=== PATIENT | female | born 2000 | race Two or more races ===

== ENCOUNTER 2020-09-18 13:15 | Observation (INO) | payer SELFPAY ==
[2020-09-18] MEDS ORDERED: IV RINGERS,LACTATED 1000ML 1,000 ML IV PRN (13:45)
[2020-09-18 13:54] LABS: BILIRUBIN,URINE NEGATIVE (NEG); CLARITY,URINE CLEAR; COLOR,URINE YELLOW; NITRITE,URINE NEGATIVE (NEG); PH,URINE 7.5 (<5.0-8.0); PROTEIN,URINE NEGATIVE (NEG-TRACE); UROBILINOGEN,URINE 0.2 mg/dL (0.2 mg/dL)
[2020-09-18 14:09] LABS: BACTERIA,URINE FEW /HPF (0-FEW); RBC,URINE 0 /HPF (0-2)
== END 2020-09-18 14:37 | disposition home or self-care (01) ==
LOC: 3 SO LND 13:15
PROVIDERS: ADMIT Obstetrics & Gynecology; ATTEND Obstetrics & Gynecology
DX: O62.9 Abnormality of forces of labor, unspecified (principal); O26.853 Spotting complicating pregnancy, third trimester; Z3A.38 38 weeks gestation of pregnancy
CPT/HCPCS: 81001; G0378; G0379; 59025

== ENCOUNTER 2020-09-19 10:19 | Observation (INO) | payer BC ==
[2020-09-19] MEDS ORDERED: IV RINGERS,LACTATED 1000ML 1,000 ML IV PRN (10:30)
[2020-09-20] MEDS ORDERED: PNV1TABL25 PO (13:34)
== END 2020-09-19 13:16 | disposition home or self-care (01) ==
LOC: 3 SO LND 10:19
PROVIDERS: ADMIT Obstetrics & Gynecology; ATTEND Obstetrics & Gynecology
DX: O62.9 Abnormality of forces of labor, unspecified (principal); O21.2 Late vomiting of pregnancy; Z3A.38 38 weeks gestation of pregnancy
CPT/HCPCS: G0378; G0379; 59025

== ENCOUNTER 2020-09-20 12:21 | Inpatient (IN) | payer BC ==
[~2020-09-20] VITALS: Ht 152.4 cm; Wt 72.1 kg
[2020-09-20] MEDS ORDERED: 0.9 % SODIUM CHLORIDE 10 ML DISP.SYRIN. IV PRN ×2 (12:45→23:15)
[2020-09-20] MEDS ORDERED: LIDOCAINE 1% PF 30 ML VIAL. INJ PRN (12:45)
[2020-09-20] MEDS ORDERED: ACETAMINOPHEN 325 MG TABLET. PO PRN ×2 (12:45→23:15)
[2020-09-20] MEDS ORDERED: TERBUTALINE 1 MG/ML VIAL. SQ PRN (12:45)
[2020-09-20] MEDS ORDERED: BUTORPHANOL 2 MG/ML VIAL. IVP PRN ×2 (12:45)
[2020-09-20] MEDS ORDERED: OXYTOCIN 30 UNIT/500 ML PREMIX 500 ML IV PRN ×3 (12:45→23:15)
[2020-09-20 13:31] VITALS: BP 147/68
[2020-09-20] MEDS ORDERED: PNV1TABL25 PO (13:34)
[2020-09-20] MEDS: IV RINGERS,LACTATED 1000ML 1,000 ML IV SCH ×3 (13:36→20:40)
[2020-09-20 13:43] LABS: BASO # 0.1 x10^3/uL (0.0-0.2); BASO % 0 % (0-3); EOS % 0 % (0-3); HEMATOCRIT 41.2 % (36.0-47.0); HEMOGLOBIN 13.9 g/dL (12.0-15.5); LYMPH # 1.8 x10^3/uL (1.0-4.8); LYMPH % 13 % (24-48); MEAN CORPUSCULAR HEMOGLOBIN 27 pg (25-35); MEAN CORPUSCULAR HGB CONC 34 g/dL (31-37); MEAN CORPUSCULAR VOLUME 81 fL (79-100); MONO # 0.8 x10^3/uL (0.0-1.1); MONO % 6 % (0-9); NEUT # 11.1 x10^3/uL (1.8-7.7); NEUT % 81 % (31-73); PLATELET COUNT 226 x10^3/uL (140-400); RED BLOOD COUNT 5.09 x10^6/uL (3.50-5.40); WHITE BLOOD COUNT 13.8 x10^3/uL (4.0-11.0)
--- NOTE | 2020-09-20 14:24 | PDOC1 ---
WELLNESS PROGRAM MANAGER H&P Date of Admission: Date of Admission: Sep 20, 2020 at 12:21 History of Present Illness: EDC: 09/27/20 LMP: 12/22/19 20y @ 39.0 by L=21 who presented to clinic with ctxs and was found to be 3 cm. The pt presented to L&D this weekend and was found to be 1 cm. She was sent home at that time b/c it was thought that she was in latent labor. Since the pt is now greater than 3 cm she was subsequently admitted. merry Redd ges in vision, or abd pain. PMH: Denies PSH: Denies Meds: PNV All: NKDA OBHx: G1 SH: no tob, no EtOH FH: noncontributory Medications: Meds: Current Medications Medications (Trade) Dose Ordered Sig/Jolie Route PRN Reason Start Time Stop Time Status Last Admin Dose Admin Ringer's Solution 1,000 ml @ 125 mls/hr Q8H IV 09/20/20 12:45 09/20/20 13:36 Butorphanol Tartrate (Stadol) 1 mg PRN Q1HR PRN IVP mild to moderate labor pain 09/20/20 12:45 09/20/20 13:55 Allergies: Coded Allergies: No Known Drug Allergies (Unverified , 09/18/20) Physical Exam: Vital Signs: Vital Signs Date Time Temp Pulse Resp B/P (MAP) Pulse Ox O2 Delivery O2 Flow Rate FiO2 09/20/20 13:55 20 Room Air 09/20/20 13:31 98.3 66 147/68 (94) 98.3 PE: GENERAL: No apparent distress. Alert and oriented. HEENT: Head normocephalic, atraumatic. NECK: Supple LUNGS: Clear to auscultation. HEART: RRR, S1, S2 present, pulses intact ABDOMEN: Soft, positive bowel sounds. EXTREMITIES: No cyanosis or edema. NEUROLOGIC: Normal speech, normal tone PSYCHIATRIC: Normal affect, normal mood. SKIN: No ulceration. FHT: 140's +acels/no decels/mLTV [place]: 3-4 min SVE: 4/C/-2 Labs: Laboratory Tests Test 09/20/20 13:15 White Blood Count 13.8 x10^3/uL (4.0-11.0) H Red Blood Count 5.09 x10^6/uL (3.50-5.40) Hemoglobin 13.9 g/dL (12.0-15.5) Hematocrit 41.2 % (36.0-47.0) Mean Corpuscular Volume 81 fL (79-100) Mean Corpuscular Hemoglobin 27 pg (25-35) Mean Corpuscular Hemoglobin Concent 34 g/dL (31-37) Red Cell Distribution Width 13.0 % (11.5-14.5) Platelet Count 226 x10^3/uL (140-400) Neutrophils (%) (Auto) 81 % (31-73) H Lymphocytes (%) (Auto) 13 % (24-48) L Monocytes (%) (Auto) 6 % (0-9) Eosinophils (%) (Auto) 0 % (0-3) Basophils (%) (Auto) 0 % (0-3) Neutrophils # (Auto) 11.1 x10^3/uL (1.8-7.7) H Lymphocytes # (Auto) 1.8 x10^3/uL (1.0-4.8) Monocytes # (Auto) 0.8 x10^3/uL (0.0-1.1) Eosinophils # (Auto) 0.0 x10^3/uL (0.0-0.7) Basophils # (Auto) 0.1 x10^3/uL (0.0-0.2) Laboratory Tests 09/20/20 13:15 Laboratory Tests 09/20/20 13:15 Assessment & Plan: A/P 20y @ 39.0 by L=21 1.) Active labor if stalls will augment with Pit 2.) Elevated BP - may be artifact, no s/s of preeclampsia 3.) H/o Covid (06/11/20) covid test performed on admission 4.) Flu given 09/02/20 5.) TDAP given 07/07/20 6.) Fetus cat I FHT 7.) GBS neg NASREEN THOMPSON MD Sep 20, 2020 14:24
[2020-09-20] MEDS ORDERED: IV RINGERS,LACTATED 1000ML 1,000 ML IV ONE ×2 (14:52→15:00)
[2020-09-20] MEDS ORDERED: fentaNYL PF VIAL 100 MCG/2 ML VIAL ONE (14:58)
[2020-09-20] MEDS ORDERED: ROPIVacaine 0.2% PF 10 ML VIAL. ONE ×2 (14:58→15:00)
[2020-09-20] MEDS ORDERED: L&D EPIDURAL SYRINGE 50 ML EPID PRN (15:00)
[2020-09-20] MEDS ORDERED: ePHEDrine PF IN SALINE 50 MG/10 ML SYRINGE. IV PRN (15:00)
[2020-09-20] MEDS ORDERED: NALOXONE 0.4 MG/ML VIAL. IV PRN ×2 (15:00)
[2020-09-20] MEDS ORDERED: ONDANSETRON PF 4 MG/2 ML VIAL. IV PRN ×2 (15:00)
[2020-09-20] MEDS: L&D EPIDURAL SYRINGE 50 ML EPID PRN ×3 (15:22→21:46)
[2020-09-20 17:42] LABS: BILIRUBIN,URINE NEGATIVE (NEG); CLARITY,URINE CLEAR; COLOR,URINE YELLOW; NITRITE,URINE NEGATIVE (NEG); PH,URINE 6.5 (<5.0-8.0); PROTEIN,URINE 30 mg/dL (NEG-TRACE); UROBILINOGEN,URINE 0.2 mg/dL (0.2 mg/dL)
[2020-09-20 17:51] LABS: BACTERIA,URINE MODERATE /HPF (0-FEW)
[2020-09-20 17:52] LABS: RBC,URINE OCC /HPF (0-2)
[2020-09-20] MEDS ORDERED: IV NORMAL SALINE 1000ML BAG 1,000 ML IV SCH (19:16)
--- NOTE | 2020-09-20 23:09 | PDOC ---
VAGINAL DELIVERY DATE DATE: 09/20/20 TIME: 23:08 TIME Patient delivered a viable female over intact perineum at 2259. Wt 6lb 15.6oz. Apgars 8/9. Placenta delivered spontaneously, intact with 3VC. No lacerations noted. Good hemostasis noted. 20 U of Pit given with IVF. EBL 200cc. WEIGHT Weight [ ] NASREEN THOMPSON MD Sep 20, 2020 23:08
[2020-09-20] MEDS ORDERED: HYDROCORTISONE 1% TOPICAL OINTMENT 30GM TUBE. TP PRN (23:15)
[2020-09-20] MEDS ORDERED: SIMETHICONE 80 MG TAB.CHEW PO PRN (23:15)
[2020-09-20] MEDS ORDERED: MMR per PROTOCOL. MC PRN (23:15)
[2020-09-20] MEDS ORDERED: BENZOCAINE 20% TOPICAL AEROSOL SPRAY 57GM CAN. TP PRN (23:15)
[2020-09-20] MEDS ORDERED: diphenhydrAMINE HCL 25 MG CAPSULE PO PRN (23:15)
[2020-09-20] MEDS ORDERED: PHENYLEPH/MINERAL OIL/PETROLAT RECTAL OINTMENT TUBE. RC PRN (23:15)
[2020-09-20] MEDS ORDERED: oxyCODONE/APAP 5/325 1 TAB TABLET PO PRN (23:15)
[2020-09-20] MEDS ORDERED: MAGNESIUM HYDROXIDE 2,400 MG/30 ML ORAL.SUSP. PO PRN (23:15)
[2020-09-20] MEDS ORDERED: ZOLPIDEM 5 MG TABLET. PO PRN (23:15)
[2020-09-20] MEDS ORDERED: TDaP (Adacel) per PROTOCOL. MC PRN (23:15)
[2020-09-20] MEDS ORDERED: MAG HYDROX/ALUMINUM HYD/SIMETH 30 ML ORAL.SUSP PO PRN (23:15)
[2020-09-20] MEDS: IBUPROFEN 400 MG TABLET. PO PRN (23:25)
[2020-09-21 02:00] VITALS: BP 119/68
[2020-09-21 06:12] VITALS: BP 117/66
[2020-09-21 07:15] LABS: HEMATOCRIT 34.2 % (36.0-47.0); HEMOGLOBIN 11.6 g/dL (12.0-15.5); RED BLOOD COUNT 4.23 x10^6/uL (3.50-5.40); RED CELL DISTRIBUTION WIDTH 13.1 % (11.5-14.5); WHITE BLOOD COUNT 20.6 x10^3/uL (4.0-11.0)
[2020-09-21] MEDS: FERROUS SULFATE 325 MG TABLET. PO SCH ×2 (08:00→17:00)
[2020-09-21] MEDS: PRENATAL MULTIVITAMIN TABLET. PO SCH (09:59)
[2020-09-21] MEDS: IBUPROFEN 400 MG TABLET. PO PRN ×2 (09:59→19:41)
[2020-09-21] MEDS: DOCUSATE SODIUM 100 MG CAPSULE. PO PRN (09:59)
[2020-09-21 10:00] VITALS: BP 110/68
--- NOTE | 2020-09-21 10:03 | PDOC ---
OPERATIONS RESEARCH ANALYST PROGRESS NOTE Date of Service: DATE: 09/21/20 TIME: 10:03 Subjective: Pt with good pain control. [place] PO. Voiding. Minimal lochia Objective: Vital Signs: Vital Signs Date Time Temp Pulse Resp B/P (MAP) Pulse Ox O2 Delivery O2 Flow Rate FiO2 09/20/20 13:31 98.3 66 20 147/68 (94) Room Air 98.3 09/21/20 02:00 96 Vital Signs Date Time Temp Pulse Resp B/P (MAP) Pulse Ox O2 Delivery O2 Flow Rate FiO2 09/21/20 06:12 98.2 67 16 117/66 (83) 98 Room Air 98.2 Labs: Laboratory Tests Test 09/20/20 12:45 09/20/20 13:15 09/20/20 14:00 09/21/20 07:08 Urine Collection Type Unknown Urine Color Yellow Urine Clarity Clear Urine pH 6.5 (<5.0-8.0) Urine Specific [place] 1.020 (1.000-1.030) Urine Protein 30 mg/dL (NEG-TRACE) Urine Glucose (UA) Negative mg/dL (NEG) Urine Ketones (Stick) 40 mg/dL (NEG) Urine Blood Moderate (NEG) Urine Nitrite Negative (NEG) Urine Bilirubin Negative (NEG) Urine Urobilinogen Dipstick 0.2 mg/dL (0.2 mg/dL) Urine Leukocyte Esterase Negative (NEG) Urine RBC Occ /HPF (0-2) Urine WBC 5-10 /HPF (0-4) Urine Squamous Epithelial Cells Many /LPF Urine Bacteria Moderate /HPF (0-FEW) Urine Mucus Marked /LPF White Blood Count 13.8 x10^3/uL (4.0-11.0) H 20.6 x10^3/uL (4.0-11.0) H Red Blood Count 5.09 x10^6/uL (3.50-5.40) 4.23 x10^6/uL (3.50-5.40) Hemoglobin 13.9 g/dL (12.0-15.5) 11.6 g/dL (12.0-15.5) L Hematocrit 41.2 % (36.0-47.0) 34.2 % (36.0-47.0) L Mean Corpuscular Volume 81 fL (79-100) 81 fL (79-100) Mean Corpuscular Hemoglobin 27 pg (25-35) 27 pg (25-35) Mean Corpuscular Hemoglobin Concent 34 g/dL (31-37) 34 g/dL (31-37) Red Cell Distribution Width 13.0 % (11.5-14.5) 13.1 % (11.5-14.5) Platelet Count 226 x10^3/uL (140-400) 178 x10^3/uL (140-400) Neutrophils (%) (Auto) 81 % (31-73) H Lymphocytes (%) (Auto) 13 % (24-48) L Monocytes (%) (Auto) 6 % (0-9) Eosinophils (%) (Auto) 0 % (0-3) Basophils (%) (Auto) 0 % (0-3) Neutrophils # (Auto) 11.1 x10^3/uL (1.8-7.7) H Lymphocytes # (Auto) 1.8 x10^3/uL (1.0-4.8) Monocytes # (Auto) 0.8 x10^3/uL (0.0-1.1) Eosinophils # (Auto) 0.0 x10^3/uL (0.0-0.7) Basophils # (Auto) 0.1 x10^3/uL (0.0-0.2) Treponema pallidum Antibody Nonreactive (Nonreactive) SARS-CoV-2 Antigen (Rapid) Negative (NEGATIVE) Laboratory Tests 09/20/20 13:15 09/21/20 07:08 Laboratory Tests 09/21/20 07:08 Physical Exam: GENERAL: No apparent distress. Alert and oriented. HEENT: Head normocephalic, atraumatic. NECK: Supple LUNGS: Clear to auscultation. HEART: RRR, S1, S2 present, pulses intact ABDOMEN: Soft, positive bowel sounds. EXTREMITIES: No cyanosis or edema. NEUROLOGIC: Normal speech, normal tone PSYCHIATRIC: Normal affect, normal mood. SKIN: No ulceration. FFNT below umb No C/C/E Assessment & Plan: A/P 20y PPD #1 s/p 1.) PP doing well 2.) Elevated BP - may be artifact, no s/s of preeclampsia, all BPs nml since delivery 3.) H/o Covid (06/11/20) covid test neg on admission 4.) Flu given 09/02/20 5.) TDAP given 07/07/20 6.) Hgb 13.9 -> 11.6 7.) Cont PP NASREEN Gomez MD Sep 21, 2020 10:03
[2020-09-21 18:35] VITALS: BP 121/75
[2020-09-21 22:03] VITALS: BP 114/70
[2020-09-22 02:42] VITALS: BP 129/77
[2020-09-22 06:14] VITALS: BP 116/64
[2020-09-22] MEDS: FERROUS SULFATE 325 MG TABLET. PO SCH (08:00)
[2020-09-22] MEDS: DOCUSATE SODIUM 100 MG CAPSULE. PO PRN (08:44)
[2020-09-22] MEDS: PRENATAL MULTIVITAMIN TABLET. PO SCH (08:45)
[2020-09-22] MEDS: IBUPROFEN 400 MG TABLET. PO PRN (08:45)
--- NOTE | 2020-09-22 10:36 | PDOC ---
FAMILY MEDIATOR PROGRESS NOTE Date of Service: DATE: 09/22/20 TIME: 10:35 Subjective: Pt with good pain control. [place] PO. Voiding. Minimal lochia Objective: Vital Signs: Vital Signs Date Time Temp Pulse Resp B/P (MAP) Pulse Ox O2 Delivery O2 Flow Rate FiO2 09/21/20 10:00 98.3 63 18 110/68 (82) 98 Room Air 98.3 Vital Signs Date Time Temp Pulse Resp B/P (MAP) Pulse Ox O2 Delivery O2 Flow Rate FiO2 09/22/20 06:14 98.1 60 16 116/64 (81) 98 Room Air 98.1 Physical Exam: GENERAL: No apparent distress. Alert and oriented. HEENT: Head normocephalic, atraumatic. NECK: Supple LUNGS: Clear to auscultation. HEART: RRR, S1, S2 present, pulses intact ABDOMEN: Soft, positive bowel sounds. EXTREMITIES: No cyanosis or edema. NEUROLOGIC: Normal speech, normal tone PSYCHIATRIC: Normal affect, normal mood. SKIN: No ulceration. FFNT below umb no C/C/E Assessment & Plan: A/P 20y PPD #2 s/p 1.) PP doing well 2.) Elevated BP - may be artifact, no s/s of preeclampsia, all BPs nml since delivery 3.) H/o Covid (06/11/20) covid test neg on admission 4.) Flu given 09/02/20 5.) TDAP given 07/07/20 6.) Hgb 13.9 -> 11.6 7.) D/c home NASREEN THOMPSON MD Sep 22, 2020 10:36
[2020-09-22] MEDS ORDERED: DOCU-109 PO (10:39)
[2020-09-22] MEDS ORDERED: IBUP-1060 PO (10:39)
--- NOTE | 2020-09-22 11:03 | DS ---
DATE OF DISCHARGE: 09/22/2020 ADMISSION DIAGNOSES: 1. Intrauterine at 39 weeks and 0 days by LMP equal to a 21-week ultrasound. 2. Active labor. 3. Elevated blood pressure. 4. History of COVID with negative test on admission. 5. GBS negative. DISCHARGE DIAGNOSES: 1. Intrauterine at 39 weeks and 0 days by LMP equal to a 21-week ultrasound. 2. Active labor. 3. Elevated blood pressure. 4. History of COVID with negative test on admission. 5. GBS negative. PROCEDURE: Spontaneous vaginal delivery. BRIEF HOSPITAL COURSE: The patient is a 20-year-old 1, para 0 at 39 weeks and 0 days by LMP equal to 21-week ultrasound, who presented to Labor and Delivery over the weekend, was found to be 1 cm. The patient presented Sunday to her clinic and was found to be 3 cm dilated and was subsequently sent to Labor and Delivery. On presentation, the patient was found to be 4 cm. The patient ultimately got an epidural and following an epidural, her membranes were artificially ruptured when she was around 6 cm. The patient did not progress and remained 6 cm for some time, so was started on Pitocin for augmentation. The patient ultimately delivered by vaginal delivery, see delivery note for full detail. During the course of her labor, she had a few elevated blood pressures, but they seemed to be artifact and the patient remained without any signs or symptoms of preeclampsia. After delivery, the patient had no additional elevated blood pressures. By day #2, the patient was meeting all discharge criteria and was subsequently discharged home. Of note, the patient's hemoglobin on admission was 3.9 and after delivery was found to be 11.6. DISCHARGE INSTRUCTIONS: The patient was told not to lift anything greater than 20 pounds, have pelvic rest for 6 weeks. CALL IF: The patient was to call if she had fevers, chills, nausea, vomiting, abdominal pain or any additional questions or concerns. FOLLOWUP APPOINTMENT: The patient is to follow up in 6 weeks' time for a appointment at [facility]. DISCHARGE MEDICATIONS: The patient was given a prescription for Motrin 800 mg 30 pills and Colace 100 mg 30 pills. NASREEN THOMPSON MD DR: BREANNA/karen JOB#: [id number] / [id number]
[2020-09-22 12:30] VITALS: BP 112/70
--- NOTE | 2020-09-22 13:30 | NUR ---
Discharge and follow up instructions reviewed and given to pt. Pt and her S/O denied any questions or concerns at this time. Pt taken out of the hospital per w/c.
== END 2020-09-22 13:30 | disposition home or self-care (01) | DRG 807 ==
LOC: 3 SO LND 12:21 → OBSVTOIN 12:47 → 3 NORTH 09-21 02:00
PROVIDERS: ADMIT Obstetrics & Gynecology; ATTEND Obstetrics & Gynecology
PROC: 10E0XZZ Delivery of Products of Conception, External Approach (ICD-10-PCS; principal; 2020-09-20)
DX: O16.4 Unspecified maternal hypertension, complicating childbirth (principal); Z37.0 Single live birth; Z3A.39 39 weeks gestation of pregnancy; Z20.828 Contact with and (suspected) exposure to other viral communicable diseases
CPT/HCPCS: 36415; 81001; 85025; 85027; 86592; 86850; 86900; 86901; 87086; 87426; G0378; G0379; J0595; J2590; J2795; J3010; J7120; U0003